=== PATIENT | female | born 1970 | race Caucasian/White ===

== ENCOUNTER → 2017-07-15 | Outpatient (CLI) | payer BC ==
[2016-02-26 16:38] VITALS: BP 117/88
--- NOTE | 2017-07-15 09:31 | RAD ---
Thyroid ultrasound, 07/15/2017: History: Neck fullness The right lobe of the gland measures 3.6 x 1.8 x 2.4 cm while the left lobe of the gland measures 3.8 x 1.6 x 1.9 cm. The gland is considered be at the upper limits of normal in size. Its echo pattern is heterogeneous in a diffuse pattern bilaterally. No discrete thyroid nodule is seen IMPRESSION: 1. Heterogeneous thyroid gland suggesting the sequelae of previous thyroiditis. 2. No thyroid mass is identified.
== END | disposition home or self-care (01) ==
LOC: US 08:40
PROVIDERS: ATTEND Physician Assistant Medical
DX: R22.1 Localized swelling, mass and lump, neck (principal)
CPT/HCPCS: 76536

== ENCOUNTER → 2020-08-22 | Outpatient (CLI) | payer BC ==
[2016-02-26 16:38] VITALS: BP 117/88
--- NOTE | 2020-08-22 12:27 | RAD ---
EXAM: Lumbar spine, 3 views. HISTORY: Pain. COMPARISON: None. FINDINGS: 3 views of the lumbar spine are obtained. There is no listhesis. The vertebral bodies are n ormal in height. There is slight disc space narrowing at L5-S1. There is mild multilevel endplate rem odeling. There is facet arthropathy at L4-L5 and L5-S1. IMPRESSION: 1. Multilevel degenerative change, primarily at the lower lumbar levels. 2. No acute osseous finding. Electronically signed by: Kathe Frias MD (08/22/2020 12:25 PM) [id number]
== END ==
LOC: DXRAD 11:55
PROVIDERS: ATTEND Physician Assistant Medical
DX: M47.816 Spondylosis without myelopathy or radiculopathy, lumbar region (principal); M48.07 Spinal stenosis, lumbosacral region; M12.88 Other specific arthropathies, not elsewhere classified, other specified site
CPT/HCPCS: 72100